=== PATIENT | male | born 2000 | race Caucasian/White ===

== ENCOUNTER 2025-03-25 00:59 | Emergency (ER) | payer SELFPAY ==
[2025-03-25 01:06] VITALS: RESP 20
--- NOTE | 2025-03-25 01:07 | ED.GENADUL_ITS ---
Discharge Plan Disposition Patient Disposition: [facility] Condition: Stable Discharge Details Clinical Impression: Encounter for medical assessment Primary Care Provider: Unknown,Unknown ED Provider: Maryanne Qureshi Discharge Instructions Additional Instructions: Return to the emergency department if symptoms develop. HPI General Date/Time Provider Initiated Documentation: 03/25/25 01:00 . Information obtained by: patient and police . Stated Complaint: OD/Poison MACY: 3 Exam Narrative Exam Narrative: General: Alert, well appearing, well nourished, in no acute distress. Head: Normocephalic, atraumatic Neck: Trachea midline, ?Neck supple. Cardiac: ?No visible cyanosis. Resp: No respiratory distress. Speaking in full sentences. Abd: Non-distended Neurologic: GCS 15, Alert, ambulates steadily. PERRL. Psych: Calm with medical personnel, agitated at [facility]. Normal eye contact. Speech with normal volume, rate, rythym and tone. Linear and goal directed. Does not appear to be responding to internal stimuli. Medical Decision Making 24yo M presenting in [facility] custody for evaluation. Patient reports drinking a large amount of alcohol this evening, was found laying in grass outside. To me he denies any falls, head strike, injury, pain, or complaints of any kind. States there is nothing for which he would like to be evaluated by a doctor. Refuses vital signs or further assessment. Nothing on history or visual physical exam to suggest head injury or active psychiatric condition; I have no indication to override his autonomy. As he has no complaints and desires no medical evaluation, he was discharged to [facility] custody. PFS All Active Problems (Updated 03/25/25 @ 01:05 by Maryanne Qureshi MD) Encounter for medical assessment (Acute) Social History Smoking risk assessment performed?: No
== END 2025-03-25 01:08 ==
LOC: ER 01:18
PROVIDERS: Emergency Provider Student in an Organized Health Care Education/Training Program
DX: Z71.1 Person with feared health complaint in whom no diagnosis is made (principal)
CPT/HCPCS: 99283; 99285